=== PATIENT | female | born 1950 | race Caucasian/White ===

== ENCOUNTER → 2016-09-04 | Day surgery (SDC) | payer MEDICARE, BC ==
[~2016-09-04] MED LIST: ALEVE220 M1 PO; AMBIEN10 MG PO; ATORVASTATIN CA10 MG PO; HYDROCHLOROTHIA25 MG PO; LEVOTHROID88 MCG PO; LEVOTHYROXINE100 MCG PO; LOSARTAN POTASS50 MG PO; SYNTHROID75 MCG PO; TYLENOL EXTRA500 M1 PO; VIIBRYD40 MG PO
--- NOTE | ~2016-09-04 | OR ---
Unit #: [id number] #: [id number] Patient: CAYLA BEARD [id number] [address] [place], [place] [address] [id number] O MR#: [id number] NAME: CAYLA BEARD. ROOM: Date of Procedure: 09/04/2016 Admission Date: 09/04/2016 Surgeon: Frank Fajardo M.D. : 1950 Attending Physician: Frank Fajardo M.D. Primary Care Physician: Nina Sosa M.D. OPERATIVE REPORT JOB NOTE: CC: [facility] PREOPERATIVE DIAGNOSES Back pain, spondylolisthesis, lumbar spondylosis, lumbar facet disease. POSTOPERATIVE DIAGNOSES Back pain, spondylolisthesis, lumbar spondylosis, lumbar facet disease. PROCEDURE PERFORMED Lumbar facet injection x2 levels with intravenous sedation and fluoroscopic guidance for needle localization. INDICATIONS FOR PROCEDURE The patient is a 66-year-old female, with epidural steroids for an L5-S1 disk herniation. This did very well to help settle her radicular pain. She continues to have back pain, which is consistent with known facet disease associated with degenerative spondylolisthesis at this L3-L4 level. The patient has not tolerated medications very well. We have been done much symptoms with interventional treatment. Plan is for trial of diagnostic and therapeutic L3-L4 and L4-5 facet injections bilaterally. DESCRIPTION OF PROCEDURE The patient was placed in a prone position. Standard monitors were applied. 2 mg of Versed were given for sedation and anxiolysis, which were adequate. Vital signs remained stable. Sterile prep and drape then of the lumbosacral area was performed. Fluoroscopy was then used to identify the left L3-L4 and L4-L5 facet joints. The skin overlying this localized with 1% lidocaine. At these two levels, a 22-gauge Quincke point spinal needle was advanced with biplanar fluoroscopic guidance to bring the needle tip to the edge of the respective L3-L4 and L4-L5 facet joints. After confirming this proper positioning, a dose of 1 mL of a mixture of 80 mg of Depo-Medrol and 3 mL of 0.25% bupivacaine were deposited, 0.5 mL within joint and 0.5 mL just outside the joint. The needles were flushed and removed. The patient tolerated this part of procedure well. Procedure #2: Right-sided L3-L4 and L4-L5 facet injections with fluoroscopic guidance. Fluoroscopy was used to identify the right L3-L4 and L4-L5 facet joints. The skin overlying this was localized with 1% lidocaine. A 22-gauge Quincke point spinal needle was then advanced with biplanar fluoroscopic guidance to bring the needle tip to within the edge Unit #: [id number] #: [id number] Patient: CAYLA BEARD of those respective L3-L4 and L4-L5 facet joints. The same dosing of 1 mL of a mixture of 80 mg of Depo-Medrol and 3 mL of 0.25% bupivacaine was deposited, 0.5 mL in the joint and 0.5 mL just outside the joint. Dictated by... Luis Chaudhary/tacos TD: 09/05/2016 01:53 JOB #: [id number] OPERATIVE REPORT Page 1 of 1 X Frank Fajardo MD X PROCEDURE OPERATIVE NOTE
== END | disposition home or self-care (01) ==
LOC: CCSC 08:36
DX: M47.26 Other spondylosis with radiculopathy, lumbar region (principal); M43.16 Spondylolisthesis, lumbar region; M51.17 Intervertebral disc disorders with radiculopathy, lumbosacral region
CPT/HCPCS: J1040; J2250